=== PATIENT | male | born 1960 | race Hispanic/Latino ===

== ENCOUNTER 2024-11-23 21:15 | Emergency (ER) | payer BC ==
[~2024-11-23] VITALS: Ht 177.8 cm; Wt 106.1 kg
[2024-11-23] MEDS: ceFAZolin SODIUM 1 GM VIAL IVPB SCH (23:31)
[2024-11-23] MEDS: LIDOCAINE HCL 1% 20 ML VIAL INJ ONE (23:36)
[2024-11-23] MEDS: teTANUS/diphthERIA TOXOID [ADULT] 0.5 ML VIAL IM ONE (23:36)
--- NOTE | 2024-11-23 23:43 | NUR ---
PATIENT REPORTS ONE OF HIS DOGS BIT HIM WHILE GETTING OUT OF BED IN A DARK ROOM. DOES NOT KNOW WHICH OF THE 2 DOGS IR WAS. STUBLED OUT OF BED WHILE ATTEMPTING TO GET UP AND FELT DOGBITE
--- NOTE | 2024-11-23 23:49 | NUR ---
LACERATION TO L ARM CLEANED WITH SKIN CLEANSER, IRRIGATED WITH NS. LIDOCAINE ADMINISTERED AND SUTURES APPLIED BY Mirna KEARNEY
--- NOTE | 2024-11-24 00:09 | NUR ---
OBED OFFICER IN ROOM TO SEE PATIENT, INCIDENT NUMBER [id number]
[2024-11-24] MEDS ORDERED: AMOX1TAB16 PO (00:21)
--- NOTE | 2024-11-24 00:24 | ERN ---
General Chief Complaint: Animal Bite Stated Complaint: DOG BITE Time Seen by MD: 22:43 Time Seen by Midlevel: 22:43 Source: patient History of Present Illness Initial Comments Patient is a 64-year-old male presenting to the emergency department for evaluation following a dog bite to his left forearm. Allergies: Coded Allergies: No Known Allergies (Unverified Allergy, Unknown, 11/23/24) Past Medical History Past Medical History: Hypertension Past Surgical History: Other Surgical History Other: BACK SX ROS Dictation CONSTITUTIONAL: Negative except for HPI HEAD/FACE: Negative except for HPI EENT: Negative except for HPI RESPIRATORY: Negative except for HPI GASTROINTESTINAL/ABDOMINAL: Negative except for HPI GENITOURINARY: Negative except for HPI MUSCULOSKELETAL: Negative except for HPI INTEGUMENTARY: Negative except for HPI NEUROLOGICAL/PSYCH: Negative except for HPI HEMATOLOGIC/LYMPHATIC: Negative except for HPI All Systems Negative, Except as noted above. 13 point review of systems assessed and all negative except for above. Physical Exam Physical Exam Dictation PHYSICAL EXAM: GENERAL: alert,, awake oriented x 3 HEENT: EOMI, Sclera non icteric, moist mucosa NECK: Supple, no JVD, trachea midline LUNGS: Clear breath sounds bilaterally. No wheezes HEART: Regular rate and rhythm. Normal S1 and S2, without murmurs ABD: Abdomen soft, nontender. Bowel sounds present EXT: No clubbing or cyanosis, NEURO: Alert and oriented to person, follows commands SKIN: 8 cm linear laceration to the left forearm, 3 cm linear laceration to the left forearm MDM MDM: 64-year-old male presenting to the ER with a dog bite to the left forearm. On physical examination there are two lacerations. The largest laceration to the left forearm measures 8 cm. There is a smaller laceration that measures 3 cm. The area was thoroughly cleansed with chlorhexidine. The laceration was successfully repaired with 13 sutures. Patient was given 1 g of Ancef IV and a tetanus vaccination in the emergency department. The patient was discharged home on Augmentin. Differential diagnosis: Laceration, dog bite, abrasion, foreign body There are no social concerns with this patient. Prescription drug management Prescriptions will include: Augmentin Medical management and examination interpretation discussions were had by me with other qualified healthcare professionals as indicated for the patient's care. ED Course Orders Procedure Category Date Status Time Cefazolin Sodium 1 Gm PHA 11/23/24 In Process Vial (Ancef 1 Gm V 23:00 Tetanus,Diphtheria PHA 11/23/24 Complete Tox [Adult] (Diphther 23:00 Laceration Tray Set CPOE 11/23/24 Transmitted Up (Er) 23:00 Lidocaine Hcl 1% 20ml PHA 11/23/24 Complete Vial (Lidocaine Hc 23:00 Current Medications Medications (Trade) Dose Ordered Sig/Holley Route PRN Reason Start Time Stop Time Status Last Admin Dose Admin Cefazolin Sodium (ANCEF 1 gm vial) 1 gm Q8H IVPB 11/23/24 23:00 12/03/24 22:59 11/23/24 23:31 Lidocaine HCl (Lidocaine HCl 1% 20ml Vial) ONCE ONCE INJ 11/23/24 23:00 11/23/24 23:03 DC Tetanus/ Diphtheria Toxoids Adsorbed (DiphthERIA-teTANUS TOXOID [ADULT]/ DECAVAC) 0.5 ml ONCE ONCE IM 11/23/24 23:00 11/23/24 23:03 DC 11/23/24 23:36 Vital Signs Date Time Temp Pulse Resp B/P (MAP) Pulse Ox O2 Delivery O2 Flow Rate FiO2 11/23/24 22:32 97.9 65 20 178/77 98 Room Air Procedure Dictation Procedure Name: Laceration Repair Indication: Reduce risk of infection Location: 8 cm linear laceration to the left forearm Pre-Procedure Diagnosis: Laceration Post-Procedure Diagnosis: Repaired Laceration Informed consent was obtained before procedure started. PROCEDURE: The appropriate timeout was taken. The area was prepped and draped in the usual sterile fashion. Local anesthesia was achieved using 2cc of Lidocaine 1% without epinephrine. The wound was copiously irrigated. 11 3-0 Ethilon simple interrupted sutures were placed. Estimated blood loss was less than 0.5 mL. A dressing was applied to the area and anticipatory guidance, as well as standard post-procedure care, was explained. Return precautions are given. The patient tolerated the procedure well without complications. Follow-up visit set for suture removal and evaluation of the laceration. Procedure Name: Laceration Repair Indication: Reduce risk of infection Location: 3 cm linear laceration to the left forearm Pre-Procedure Diagnosis: Laceration Post-Procedure Diagnosis: Repaired Laceration Informed consent was obtained before procedure started. PROCEDURE: The appropriate timeout was taken. The area was prepped and draped in the usual sterile fashion. Local anesthesia was achieved using 2cc of Lidocaine 1% without epinephrine. The wound was copiously irrigated. 2 3-0 Ethilon simple interrupted sutures were placed. Estimated blood loss was less than 0.5 mL. A dressing was applied to the area and anticipatory guidance, as well as standard post-procedure care, was explained. Return precautions are given. The patient tolerated the procedure well without complications. Follow-up visit set for suture removal and evaluation of the laceration. DX & DISP Disposition: Discharge Departure Impression: Primary Impression: Dog bite of left upper arm Additional Impression: Forearm laceration Condition: Stable Scripts Amoxicillin/Potassium Clav (Amox Tr-K Clv 875-125 mg Tab) 875 Mg-125 Mg Tablet 1 EACH PO BID for 7 Days, #14 TAB 0 Refills Prov: ANGELA SIFUENTES 11/24/24 Additional Instructions: A total of 13 sutures were placed. These need to be removed in 10 days. If you notice any signs of infection please report to the ER for further evaluation. Take your antibiotics as prescribed. Referrals: BERTRAM TOVAR (PCP) Time of Disposition: 00:19 I have reviewed the case, and I agree with, Diagnosis and Plan I performed the substantive portion of the visit. I have reviewed and personally made and approve the management plan that is documented in the note by myself or the KAELA. I acknowledge for responsibility for the patient's management plan. ANGELA SIFUENTES November 24, 2024 00:24
[2024-11-24 00:48] VITALS: BP 157/82; PULSE 67; RESP 17; TEMP 98.4; O2SAT 99
== END 2024-11-24 00:50 | disposition home or self-care (01) ==
LOC: EDH 21:15
DX: S51.812A Laceration without foreign body of left forearm, initial encounter (principal); I10 Essential (primary) hypertension; Z98.890 Other specified postprocedural states; W54.0XXA Bitten by dog, initial encounter; Y93.89 Activity, other specified; Y92.89 Other specified places as the place of occurrence of the external cause; Y99.8 Other external cause status
CPT/HCPCS: 99284; 96374; 90714; 90471; 12004; J0690

== ENCOUNTER 2024-12-03 07:57 | Emergency (ER) | payer BC, MEDICARE ==
[~2024-12-03] VITALS: Ht 177.8 cm; Wt 104.3 kg
[~2024-12-03 07:57] MED LIST: AMOX1TAB16 PO
[2024-12-03 07:58] VITALS: BP 132/72
[2024-12-03 08:14] VITALS: PULSE 16; RESP 16; TEMP 98.5; O2SAT 97
[2024-12-03] MEDS ORDERED: CLIN-141 PO (08:20)
--- NOTE | 2024-12-03 08:21 | ERN ---
General Chief Complaint: Suture/Staple Removal Stated Complaint: REMOVE STITCHES FROM LEFT ARM Time Seen by MD: 08:14 History of Present Illness Initial Comments Mr. Pantoja is a very pleasant 64-year-old male with a significant past medical history of a recent dog bite 10 days ago who presents today for removal of sutures. Patient apparently completed a 10 day course of antibiotics in the form of Augmentin but apparently his has been voicing concern that is wound still appears red and slightly opened. He denies pain, drainage, fevers, functional limitation. He states that he has been cleaning the wound daily and covered it with bandage is while staying in the home under the renovation Allergies: Coded Allergies: No Known Allergies (Unverified Allergy, Unknown, 11/23/24) Home Meds Active Scripts Amoxicillin/Potassium Clav (Amox Tr-K Clv 875-125 mg Tab) 875 Mg-125 Mg Tablet, 1 EACH PO BID for 7 Days, #14 TAB 0 Refills Prov:ANGELA SIFUENTES 11/24/24 Past Medical History Past Medical History: Hypertension Past Surgical History: Other Surgical History Other: BACK SX ROS Dictation Constitutional: Negative for fever,chills, and weight loss Eyes: Negative for injury, pain,redness, and discharge ENT: Negative for injury,pain or swelling Cardiovascular: Negative for chest pain, palpitations, and edema Respiratory: Negative for shortness of breath, cough, and wheezing, Abdomen/GI: Negative for abdominal pain, nausea, vomiting, diarrhea, and constipation Back: Negative for injury and pain : Negative for injury, bleeding and discharge MS/Extremity: Negative for injury and deformity Skin: Mild redness and wound margins Neuro: Negative for headache, weakness, numbness, tingling, and seizure Psych: Negative for suicide ideation, homicidal ideation, and hallucinations Physical Exam Physical Exam Dictation General: awake, alert, NAD Head/Face: Normocephalic, atraumatic Eyes: PERRL, EOMI, vision at baseline ENT: oral cavity clear, TMs clear, no signs of infection Neck: Trachea midline, supple, no nuchal rigidity Cardiovascular: RRR, normal S1/S2, No MRGs, no JVD Respiratory: CTAB, no respiratory distress, No rales or wheezes Abdomen: Soft, non-tender, non-distended, normal bowel sounds, no guarding or rebound. Skin: Warm, dry, normal turgor, no rash MS/Extremity: Linear wound healing with sutures intact, no discharge mild surrounding erythema. Drain site closed no need for secondary closure. Sensations intact, full range of motion, tenderness absent reports mild numbness over scar. Neurovascular status intact distally Neuro: COAx4, GCS 15, strength 5/5, CN 2-12 intact, normal cerebellar exam, normal gait, Psych: Normal behavior, mood, and affect normal MDM Patient presents for routine suture removal on day 10 post repair but wound not fully healed especially around the drain site. Mild surrounding erythema without active signs of infection or abscess. Due to high risk mechanism tissue tension at wound margins and incomplete epithelialization early suture removal could lead to dehiscence. We will start the patient on clindamycin try another 4 days. No need for imaging MDM: Differential diagnosis: Suture removal Rationale: Tests considered and ordered secondary to shared decision making include: Previous outside records reviewed: Old ER visits. Risk of complication and/or morbidity or mortality of patient management: None Medications-Per medication reconciliation Need for hospitalization: Patient does not meet criteria for hospitalization. Need for emergency major/minor surgery: No There are no social concerns with this patient. Prescription drug management Prescriptions will include symptomatic care Patient's prior external medical records from other ER visits were reviewed by me as indicated. Prior testing and results from previous visits were reviewed. Prior tests were taken into account with medical decision making and resource utilization, independent historian/historians were used to obtain complete medical history. I independently interpreted the test that were performed, results were reviewed by me and considered findings on radiology if ordered. Medical management and examination interpretation discussions were had by me with other qualified healthcare professionals as indicated for the patient's care. ED Course Vital Signs Date Time Temp Pulse Resp B/P (MAP) Pulse Ox O2 Delivery O2 Flow Rate FiO2 12/03/24 07:58 98.4 51 16 132/72 98 Room Air 0 DX & DISP Disposition: Discharge Departure Condition: Stable Scripts Clindamycin HCl (Clindamycin HCl) 300 Mg Capsule 1 CAP PO TID for 7 Days, #21 CAP 0 Refills Prov: SHERYL YEN MD 12/03/24 Additional Instructions: Discharged home in stable condition, advised to return in 4 days earlier Thursday for suture removal. Verbal and written wound care instructions has been provided. Continue to take clindamycin 300 mg orally 3 times a day. Referrals: BERTRAM TOVAR (PCP) SHERYL YEN MD December 03, 2024 08:21
[2024-12-03] MEDS: CLINDAMYCIN 150 MG CAP PO ONE (08:22)
--- NOTE | 2024-12-03 08:26 | NUR ---
PT AAOX4, PT IS STABLE NO DISTRESS, VITALS WNL NO C/O PAIN, WOUND WASH AND TREATED, PT GIVEN RX EMAILED TO HIS PHARMACY WILL START TODAY. PT HAS NO IV WILL DRIVE HIMSELF HOME.
== END 2024-12-03 08:27 | disposition home or self-care (01) ==
LOC: EDH 07:57
DX: S41.112D Laceration without foreign body of left upper arm, subsequent encounter (principal); I10 Essential (primary) hypertension; Z79.899 Other long term (current) drug therapy; X58.XXXD Exposure to other specified factors, subsequent encounter
CPT/HCPCS: 99283